=== PATIENT | male | born 1980 | race Two or more races ===

== ENCOUNTER 2019-01-09 06:41 | Emergency (ER) | payer SELFPAY ==
[~2019-01-09] VITALS: Ht 175.3 cm; Wt 91.0 kg
[2019-01-09] MEDS ORDERED: KETOROLAC 30MG/ML VIAL IV STA (07:18)
[2019-01-09] MEDS ORDERED: LORAZEPAM 2MG/ML CPJ IV ONE (07:30)
[2019-01-09 07:38] LABS: BASOPHILS % 0.6 % (0.0-2.0); CHLORIDE 107 mEq/L (98-107); HEMATOCRIT. 45.4 % (42.0-52.0); HEMOGLOBIN. 15.3 g/dL (14.0-18.0); LYMPHOCYTES % 26.8 % (20.0-50.0); MEAN CORPUSCULAR HEMOGLOBIN 28.8 pg (28.0-32.0); MEAN CORPUSCULAR VOLUME 85.5 fL (80.0-94.0); MEAN PLATELET VOLUME 9.9 fl (7.4-10.4); MONOCYTES % 7.6 % (2.0-8.0); PLATELET 201 x1000/uL (130-400); RED CELL DISTRIBUTION WIDTH 13.9 % (11.6-14.6)
[2019-01-09 08:19] LABS: CLARITY URINE CLEAR (CLEAR); COLOR URINE YELLOW (YELLOW); KETONES URINE NEGATIVE (NEGATIVE); LEUKOCYTE ESTERASE URINE NEGATIVE (NEGATIVE); NITRITE URINE NEGATIVE (NEGATIVE); OCCULT BLOOD URINE 1+ (NEGATIVE); PROTEIN URINE TRACE (NEGATIVE); SPECIFIC GRAVITY URINE 1.013 (1.005-1.030); UROBILINOGEN URINE 0.2 E.U./dL (0.2-1.0)
[2019-01-09] MEDS ORDERED: IOHEXOL-300 100 ML BOTTLE ONE (08:38)
[2019-01-09 09:22] VITALS: BP 162/103
== END 2019-01-09 09:34 | disposition home or self-care (01) ==
LOC: ER 06:41
DX: R10.31 Right lower quadrant pain (principal); R51 Headache; F32.9 Major depressive disorder, single episode, unspecified
CPT/HCPCS: 36415; 74177; 80053; 81003; 83690; 85025; 96374; 96375; 99284; J1885; J2060; Q9967

== ENCOUNTER 2022-02-09 19:42 | Emergency (ER) | payer OTHER ==
[~2022-02-09] VITALS: Ht 170.2 cm; Wt 102.4 kg
[2022-02-09] MEDS ORDERED: IBUPROFEN 400MG TABLET PO ONE (22:15)
[2022-02-09] MEDS ORDERED: ACETAMINOPHEN 325MG TABLET PO ONE (22:15)
[2022-02-09] MEDS ORDERED: MORPHINE SULFATE 10 MG/ML CPJ IV ONE (22:30)
[2022-02-09 22:42] VITALS: BP 181/111
[2022-02-09 22:45] LABS: CLARITY URINE TURBID (CLEAR); COLOR URINE ORANGE (YELLOW); KETONES URINE NEGATIVE (NEGATIVE); LEUKOCYTE ESTERASE URINE TRACE (NEGATIVE); NITRITE URINE NEGATIVE (NEGATIVE); OCCULT BLOOD URINE 3+ (NEGATIVE); PH URINE 7.5 (4.5-8.0); PROTEIN URINE 1+ (NEGATIVE); SPECIFIC GRAVITY URINE 1.017 (1.005-1.030)
[2022-02-09 22:48] LABS: BASOPHILS % 0.4 % (0.0-2.0); EOSINOPHILS % 0.3 % (0.0-5.0); HEMATOCRIT. 40.4 % (42.0-52.0); HEMOGLOBIN. 13.7 g/dL (14.0-18.0); LYMPHOCYTES % 14.9 % (20.0-50.0); MEAN CORPUSCULAR HEMOGLOBIN 28.1 pg (28.0-32.0); MEAN CORPUSCULAR VOLUME 82.7 fL (80.0-94.0); MEAN PLATELET VOLUME 9.5 fl (7.4-10.4); MONOCYTES % 7.9 % (2.0-8.0); NEUTROPHILS % 76.5 % (40.0-76.0); PLATELET 204 x1000/uL (130-400); RED BLOOD CELL COUNT 4.88 mill/uL (4.7-6.1); RED CELL DISTRIBUTION WIDTH 13.4 % (11.6-14.6)
[2022-02-09 22:56] LABS: CHLORIDE 106 mEq/L (98-107)
[2022-02-09] MEDS ORDERED: MORP15TA67 PO (23:45)
[2022-02-09] MEDS ORDERED: ACET-2708 MT (23:48)
[2022-02-09] MEDS ORDERED: IBUP-2028 MT (23:49)
== END 2022-02-10 00:31 | disposition home or self-care (01) ==
LOC: ER 19:42
DX: N13.2 Hydronephrosis with renal and ureteral calculous obstruction (principal); D72.829 Elevated white blood cell count, unspecified; R31.9 Hematuria, unspecified; F32.A Depression, unspecified; R10.31 Right lower quadrant pain
CPT/HCPCS: 36415; 80048; 80076; 81003; 83690; 85025; 96374; 99283; J2270